=== PATIENT | male | born 1990 | race Two or more races ===

== ENCOUNTER 2021-02-21 11:41 | Day surgery (SDC) | payer BC, SELFPAY ==
[2021-02-21] VITALS (8 sets, daily range): BP systolic 111–156; BP diastolic 66–95; PULSE 84–103; RESP 14–20; TEMP 36.2–37.2; O2SAT 95–99; BMI 31.4
--- NOTE | 2021-02-21 12:00 | HMH.ANESCL ---
[facility] Anesthesia Checklist - Patient Identification Patient Identification: Arm Band - Structural Data Admitted From: Home Planned Operative Procedure/s: I&D Pilonidal Cyst Consent for Planned Operative Procedure(s) Verified: Yes Verified Documents: Surgical Consent, History and Physical - NPO Status Verified Time NPO: 06:00 (water) - Additional verifications Anesthesia Reactions: No - Airway Assessment C-Spine Mobility Assessed: Yes (mp2) TMJ Mobility Assessed: Yes Dentition: Good Dentition - Neurological Assessment Level of Consciousness: Awake, Alert - Anesthesia Plan Anesthesia Risk discussed: Yes Anesthesia Plan: Verified ASA Class: II Anesthesia Type: General [facility] History I have reviewed the patient's past medical history: Yes *Have you ever received a pneumonia vaccine?: No *Have you received a flu vaccine this season?: No Anesthesia experience/problems:: nac Other Surgeries: Yes: No Previous Surgery - *Social History Smoking Status: Former smoker Alcohol Intake: never Substance Use Type: marijuana *Occupational Status:: employed *Travel in the last 8 weeks: None Family Hx:: No significant family history
--- NOTE | 2021-02-21 13:00 | HMH.OPNOTE ---
Date of procedure: 02/21/21 Pre-op Diagnosis:: Abscessed pilonidal cyst Post-op Diagnosis:: Same Procedure performed:: Incision and drainage of abscessed pilonidal cyst Surgeon:: Campos Crane MD [employer]:: Karl Diaz Anesthesia: LMA Estimated blood loss (mL): 75 Operative findings:: Pilonidal abscess with leftward deviation Operative note:: After informed consent was obtained the patient was taken to the operating room and placed in the supine position. General anesthesia with laryngeal mask airway was achieved. He was then transferred to the left lateral decubitus position. The buttock cleft and surrounding region were prepped and draped in a sterile fashion. Fluid was aspirated and passed off for Gram stain/culture. Electrocautery was utilized to create an elliptical incision around the central portion of the abscess. The ellipse was excised in toto. The underlying abscess cavity was evacuated of purulent fluid. Electrocautery was utilized to achieve hemostasis. The wound was packed with moistened Kerlix. The entire region was infiltrated with 1% lidocaine. Dressings were applied and the patient was transferred to recovery in stable condition after removal of his laryngeal mask airway. Condition: stable Disposition: PACU Specimens:: Fluid for Gram stain/culture Complications:: No immediate
--- NOTE | 2021-02-21 13:10 | HMH.ANESI ---
[facility] Anesthesia Record Part I Intake, IV Amount: 700 Estimated blood loss (mL): 75 Urine output (mL): 0 Blood Pressure: 123/95 SaO2: 95 Pulse Rate: 103 Respiratory Rate: 16 Temperature: 98.0 F Patient is:: Drowsy, Stable Stable to PACU at:: 13:00
--- NOTE | 2021-02-21 13:40 | PC.NURSE ---
1330- detailed report given to Val Dinh rn, by lul MENDIETA. Pt left in PACU in stable condition with Val Dinh RN.
--- NOTE | 2021-02-22 12:31 | HMH.ANESII ---
[facility] Anesthesia Record Part II Discharge Time: 13:30 Destination: Surgical Day Care (OP Surgery) PACU nurse assessment reviewed?: Yes Patient Condition:: Good Anesthesia Complications:: None Swallowing reflex intact?: Yes Cyanosis?: No Blood Pressure: 120/68 Pulse Rate: 84 Temperature: 99 F Mental Status: Alert & Oriented Pain level:: 0 Nausea and/or vomitting:: None Intake, IV Amount: 0
[2021-02-22 12:32] VITALS: BP 120/68; PULSE 84; TEMP 37.2
== END 2021-02-21 14:01 | disposition home or self-care (01) ==
PROVIDERS: Visit Provider Surgery
PROC: (CPT 10081; principal; 2021-02-21 11:45)
DX: L05.01 Pilonidal cyst with abscess (principal)
CPT/HCPCS: 10081; 87070; 87075; 87205; 96374; J2405; U0003